=== PATIENT | male | born 1990 | race Caucasian/White ===

== ENCOUNTER 2018-08-30 19:54 | Emergency (ER) | payer SELFPAY ==
[~2018-08-30] VITALS: Ht 167.6 cm; Wt 61.4 kg
[~2018-08-30 19:54] MED LIST: CEPHALEXIN500 M1 PO
[2018-08-30 20:45] VITALS: BP 135/89; PULSE 69; TEMP 98.3
== END 2018-08-30 20:46 | disposition home or self-care (01) ==
LOC: COL.ER 19:54
DX: S81.811A Laceration without foreign body, right lower leg, initial encounter (principal); F41.9 Anxiety disorder, unspecified; F31.9 Bipolar disorder, unspecified; Z88.0 Allergy status to penicillin; Z23 Encounter for immunization; F17.210 Nicotine dependence, cigarettes, uncomplicated; W26.8XXA Contact with other sharp object(s), not elsewhere classified, initial encounter; Y92.009 Unspecified place in unspecified non-institutional (private) residence as the place of occurrence of the external cause

== ENCOUNTER 2019-04-24 19:01 | Emergency (ER) | payer SELFPAY ==
[~2019-04-24] VITALS: Ht 167.6 cm; Wt 63.6 kg
[2019-04-24 19:23] VITALS: BP 146/90
[2019-04-24 20:03] VITALS: TEMP 98.2
[2019-04-24] MEDS ORDERED: BACTRIM DS 8001 TAB PO (20:45)
[2019-04-24 21:09] VITALS: PULSE 77
== END 2019-04-24 21:10 | disposition home or self-care (01) ==
LOC: COL.ER 19:01
DX: S81.811A Laceration without foreign body, right lower leg, initial encounter (principal); F31.9 Bipolar disorder, unspecified; F17.210 Nicotine dependence, cigarettes, uncomplicated; F41.9 Anxiety disorder, unspecified; Z88.0 Allergy status to penicillin; W26.8XXA Contact with other sharp object(s), not elsewhere classified, initial encounter; Y92.009 Unspecified place in unspecified non-institutional (private) residence as the place of occurrence of the external cause

== ENCOUNTER 2020-04-02 13:50 | Emergency (ER) | payer SELFPAY ==
[~2020-04-02] VITALS: Ht 167.6 cm; Wt 65.9 kg
[~2020-04-02 13:50] MED LIST changes: +BACTRIM DS 8001 TAB PO
[2020-04-02 14:18] VITALS: BP 122/81; TEMP 98.5
[2020-04-02 16:19] VITALS: PULSE 80
== END 2020-04-02 16:19 | disposition home or self-care (01) ==
LOC: COL.ER 13:50
DX: R19.7 Diarrhea, unspecified (principal); F17.210 Nicotine dependence, cigarettes, uncomplicated; Z96.22 Myringotomy tube(s) status

== ENCOUNTER 2020-06-14 02:30 | Emergency (ER) | payer SELFPAY ==
[~2020-06-14] VITALS: Ht 167.6 cm; Wt 65.9 kg
[2020-06-14 02:32] VITALS: TEMP 98.7
[2020-06-14] MEDS ORDERED: DOXYCYCLINE 10100 MG PO (02:57)
[2020-06-14 03:15] VITALS: BP 120/82; PULSE 101
== END 2020-06-14 03:15 | disposition home or self-care (01) ==
LOC: COL.ER 02:30
DX: L03.221 Cellulitis of neck (principal); F15.90 Other stimulant use, unspecified, uncomplicated; F32.9 Major depressive disorder, single episode, unspecified; F17.200 Nicotine dependence, unspecified, uncomplicated; Z88.0 Allergy status to penicillin